=== PATIENT | female | born 1960 | race Caucasian/White ===

== ENCOUNTER → 2016-03-05 | Day surgery (SDC) | payer BC ==
[~2016-03-05] VITALS: Ht 157.5 cm; Wt 95.0 kg
[~2016-03-05] MED LIST: AMLO5CAP PO; BISO10TA PO; BUPR15TA PO; CALC600T21 PO; CEFUROXIME SODIUM 1.5 GM in D5W MINI-BAG PLUS 50 ML IV ONE; CYCL10TA PO; LIDOCAINE 1% SDV INJ 30 ML VIAL As Ordered ONE; LIDOCAINE 1% SDV INJ 30 ML VIAL XX ONE; LIDOCAINE 2% INJ 100 MG/5 ML SDV (FOR ANES.) As Ordered ONE; LR 1,000 ML IV SCH; LUNE1TAB5 PO; LYRI100C10 PO; MIDAZOLAM INJ 2 MG/2 ML VIAL (J2250) As Ordered ONE; MOBI15TA PO; MULT1TAB18 PO; NORCO, ANEXSIA 5/325MG TABLET (HYDROcodone/ACETAMINOPHEN) PO PRN; ONDANSETRON 4MG/2ML VIAL (J2405) As Ordered ONE; PERCOCET 5MG/325MG TAB As Ordered ONE; PRIL40CA PO; PROPOFOL 200 MG/20 ML VIAL As Ordered ONE; SCOPOLAMINE 1.5 MG TRANSDERMAL As Ordered ONE; SCOPOLAMINE 1.5 MG TRANSDERMAL TOP ONE; TYLE500T78 PO; VITA200016 PO; dexameTHASONE 4 MG/ML 1ML VIAL (J1100) As Ordered ONE; ePHEDrine SULFATE 25 MG/5 ML(5MG/ML) SYRINGE As Ordered ONE; fentaNYL 100 MCG/2 ML INJECTION (J3010) As Ordered ONE; fentaNYL 100 MCG/2 ML INJECTION (J3010) IV PRN; methylPREDNISolone SUSP 40 MG/ML (DEPO-medrol) VIAL (J1030) As Ordered ONE; methylPREDNISolone SUSP 40 MG/ML (DEPO-medrol) VIAL (J1030) XX ONE
[2016-03-05] MEDS: PERCOCET 5MG/325MG TAB PO PRN ×2 (11:45→12:07)
--- NOTE | 2016-03-05 13:11 | RO ---
DATE OF PROCEDURE: 03/05/2016 PREPROCEDURE DIAGNOSIS: Right carpal tunnel syndrome, POSTPROCEDURE DIAGNOSIS: Right carpal tunnel syndrome, PROCEDURE: Release of right carpal tunnel. SURGEON: Yousif Saini MD ANESTHESIA: General. Findings: Please see my office note for detailed preoperative evaluation and discussions. The patient had clinical and electrodiagnostic evidence of carpal tunnel syndrome. The patient's clinical findings were unchanged. A preoperative consultation was held with her and her . The patient understood that no guarantees of any kind could be given and she was aware of the scope, expected outcome, sequelae and all complications of the salvage surgery. She understood the risks, including persistent worsening of symptoms, failure of surgery, need for multiple surgeries, infection, bleeding, loss of vital bodily function, and/or any other catastrophic sequelae. She understood that not all of her symptoms could be readily explained on the carpal tunnel syndrome; thus, may not all be addressed. She understands that and is willing to proceed with the surgery, as she cannot cope with her symptoms anymore and is willing to take any or all risk for any possible benefit. The patient and her had followup instructions. After informed consent and after all matters pertaining to the surgery, anesthesia and followup care were discussed with her, she was taken to the operating room. After the discussion with the anesthesiologist, she opted to have general anesthesia. DESCRIPTION OF PROCEDURE: Once in the operating room, general anesthesia was given by the anesthesia service. The area of surgery was prepped and draped in the usual sterile fashion. Using an Esmarch dressing, the right extremity was exsanguinated and the blood pressure was placed to 80 mmHg. A skin incision was given distal to the wrist crease, along the palmar creases. Alveolar layer was reached. Cut edges of blood vessels were coagulated with bipolar cautery. Tendons of palmaris longus were . Thenar and hypothenar muscles were stripped off the flexor retinaculum. Significant perineural scarring. External neurolysis of the adhesions were done and complete decompression of the median nerve was achieved at the carpal tunnel and distally in the forearm near the wrist joint. The wound was closed in two layers. The patient tolerated the procedure well and was transferred to the recovery room in stable condition. Operative findings were discussed with the patient's in the waiting room.
[2016-03-05 13:35] VITALS: BP 133/74
== END | disposition home or self-care (01) ==
LOC: M SDC 07:20
PROVIDERS: ATTEND Neurological Surgery
DX: G56.01 Carpal tunnel syndrome, right upper limb (principal); I10 Essential (primary) hypertension; G47.30 Sleep apnea, unspecified; K22.70 Barrett's esophagus without dysplasia; K21.9 Gastro-esophageal reflux disease without esophagitis; Z79.899 Other long term (current) drug therapy; Z87.891 Personal history of nicotine dependence; F32.9 Major depressive disorder, single episode, unspecified; F41.9 Anxiety disorder, unspecified
CPT/HCPCS: 64721; J0697; J1030; J1100; J2250; J2405; J3010

== ENCOUNTER → 2016-03-20 | Outpatient (CLI) | payer BC ==
[~2016-03-20] MED LIST changes: -CEFUROXIME SODIUM 1.5 GM in D5W MINI-BAG PLUS 50 ML IV ONE; -LIDOCAINE 1% SDV INJ 30 ML VIAL As Ordered ONE; -LIDOCAINE 1% SDV INJ 30 ML VIAL XX ONE; -LIDOCAINE 2% INJ 100 MG/5 ML SDV (FOR ANES.) As Ordered ONE; -LR 1,000 ML IV SCH; -MIDAZOLAM INJ 2 MG/2 ML VIAL (J2250) As Ordered ONE; -NORCO, ANEXSIA 5/325MG TABLET (HYDROcodone/ACETAMINOPHEN) PO PRN; -ONDANSETRON 4MG/2ML VIAL (J2405) As Ordered ONE; -PERCOCET 5MG/325MG TAB As Ordered ONE; -PROPOFOL 200 MG/20 ML VIAL As Ordered ONE; -SCOPOLAMINE 1.5 MG TRANSDERMAL As Ordered ONE; -SCOPOLAMINE 1.5 MG TRANSDERMAL TOP ONE; -dexameTHASONE 4 MG/ML 1ML VIAL (J1100) As Ordered ONE; -ePHEDrine SULFATE 25 MG/5 ML(5MG/ML) SYRINGE As Ordered ONE; -fentaNYL 100 MCG/2 ML INJECTION (J3010) As Ordered ONE; -fentaNYL 100 MCG/2 ML INJECTION (J3010) IV PRN; -methylPREDNISolone SUSP 40 MG/ML (DEPO-medrol) VIAL (J1030) As Ordered ONE; -methylPREDNISolone SUSP 40 MG/ML (DEPO-medrol) VIAL (J1030) XX ONE
--- NOTE | 2016-03-21 02:10 | REP ---
Clinical: Spondylosis . Technique: AP, lateral, flexion/extension, bilateral oblique, swimmers and open-mouth views. Findings: There is no evidence for acute fracture / compression injury or subluxation. Moderate to advanced multilevel degenerative changes include endplate sclerosis, disc space narrowing, and osteophytosis. Findings are most pronounced at the C5-6, C6-7 and C7-T1 levels. Oblique views demonstrate patent neural foramen with minimal hypertrophy narrowing the C5-6 and C6-7 foramen. Open mouth view demonstrates normal C1-C2 articulation and odontoid process. Impression: Moderate to advanced multilevel degenerative changes primarily involving C5-6 through C7-T1. Signed by Felice Aldridge MD 03/21/2016 02:01 A
--- NOTE | 2016-03-21 02:24 | REP ---
Clinical: Spondylosis. Technique: AP, lateral, flexion/extension, bilateral oblique and coned-down views of the lumbosacral spine. Comparison: 09/29/2009. Findings: Moderate to advanced multilevel degenerative changes are appreciated involving the visualized lower thoracic through lumbosacral spine. Findings have progressed since prior examination and including bridging osteophytes, endplate sclerosis with disc space narrowing, and hypertrophic facet changes. Alignment and lordosis is maintained. No acute fracture / compression injury or subluxation. Impression: Moderate to advanced multilevel degenerative changes. Signed by Felice Aldridge MD 03/21/2016 02:16 A
== END ==
LOC: M RAD 15:16
PROVIDERS: ATTEND Neurological Surgery
DX: M47.892 Other spondylosis, cervical region (principal); M47.896 Other spondylosis, lumbar region

== ENCOUNTER → 2016-05-23 | Outpatient (CLI) | payer BC | LOC: M LAB 06:22 | PROVIDERS: ATTEND Neurological Surgery | DX: E66.9 Obesity, unspecified (principal) ==

== ENCOUNTER → 2016-06-25 | Outpatient (CLI) | payer BC ==
--- NOTE | 2016-06-25 14:16 | REPMRS ---
Patient History The patient states she had a clinical breast exam in 04/11 Patient is postmenopausal. Family history of prostate cancer in maternal grandfather under age 50, breast cancer in maternal grandmother under age 50, and prostate cancer in 2 brothers at age 50 or over. Benign excisional biopsy of the right breast, 1994. Digital Woman Screen Mammo: June 25, 2016 - Exam #: [id number] Bilateral CC and MLO view(s) were taken. Technologist: Steph Donnelly, Technologist Prior study comparison: May 23, 2015, digital woman screen mammo performed at [facility]. August 12, 2013, digital woman screen mammo performed at [facility]. FINDINGS: There are scattered fibroglandular densities. There has been no change in the appearance of the mammogram from the prior studies. There is a mild amount of residual fibroglandular tissue which is fairly symmetric. There is no interval development of dominant mass, architectural distortion, or clustered microcalcification suggestive of malignancy. ASSESSMENT: BI-RADS/ACR category 1 mammogram. Negative. Recommendation Routine screening mammogram in 1 year (for women over age 40). This mammogram was interpreted with the aid of an FDA-approved computer-aided dectection system. Electronically Signed By: Javon Herrera MD 06/25/16 2216
== END ==
LOC: M WHC 11:34
PROVIDERS: ATTEND Internal Medicine
DX: Z12.31 Encounter for screening mammogram for malignant neoplasm of breast (principal); Z78.0 Asymptomatic menopausal state

== ENCOUNTER → 2017-11-19 | Outpatient (REF) | payer BC | LOC: M LAB REF 09:57 | DX: N39.0 Urinary tract infection, site not specified (principal) | CPT/HCPCS: 87186 ==